=== PATIENT | female | born 1940 | race Caucasian/White ===

== ENCOUNTER 2016-10-05 07:40 | Day surgery (SDC) | payer MEDICARE, OTHER ==
[~2016-10-05 07:40] MED LIST: BUPIVACAINE HCL 0.75% INJ/PF (7.5 MG/1 ML) 10 ML SDV ONE; LIDOCAINE 2%/EPINEPHRINE INJ 20 ML VIAL ONE; POVIDONE-IODINE 5% OPH PREP SOLN 30 ML ONE; TETRACAINE HCL 0.5% OPH SOLN 2 ML ONE; THROMBIN (BOVINE) TOPICAL 5000 UNIT VIAL ONE
[2016-10-05] MEDS: NEO/POLYMYX B SULF/DEXAMETH OPH OINTMENT 3.5 GM ONE ×2 (09:43)
--- NOTE | 2016-10-16 17:49 | [facility] OPERATIVE REPORT E ---
[facility] Operative Report NAME: TOMMIE MACIAS AGE: 76Y DATE OF SURGERY: 10/05/2016 ROOM: PREOPERATIVE DIAGNOSIS: Bilateral upper eyelid dermatochalasis with visual field loss. POSTOPERATIVE DIAGNOSIS: Bilateral upper eyelid dermatochalasis with visual field loss. OPERATION: Bilateral upper eyelid blepharoplasty. SURGEON: SARAH HERNANDEZ M.D. ANESTHESIA: Local with MAC. PROCEDURE: The patient was brought to the operating room, and under monitored anesthesia care, Tetracaine drops were placed in the eye. Both eyes were sterilely prepped and draped in the usual manner. Attention was directed to the left upper lid where the upper lid crease was marked using a marking pen, and 0.3 mm forceps were used to estimate the excess upper lid to be excised. This was marked in an elliptical fashion. An identical procedure was performed on the right upper lid. Local anesthesia was administered, and this consisted of approximately 3 mL of 2% Xylocaine with epinephrine mixed with 0.75% Marcaine in a 1:1 ratio. This was administered in both upper lids and diffused with a Q-tip. Attention was directed to the left upper lid where the elliptical piece of skin was removed. Hemostasis was obtained with bipolar cautery. The orbital septum was opened, and retroseptal fat was grasped with a hemostat, cut, and cauterized. Thrombin was placed on the incision. Identical procedure was performed on the right upper lid. Wound closure was accomplished with 3 interrupted 6-0 silk sutures, taking a deep bite at the levator fascia approximating the lid skin. Closure was completed with a running 6-0 nylon suture through both upper lids. There was full closure and good hemostasis at the end of the surgery. Next, TobraDex ointment was placed on both upper lids. The patient tolerated the procedure well and was sent to recovery room in good condition. DICTATING PHYSICIAN: SARAH HERNANDEZ M.D. [id number] PHY#: [id number] ID: [id number] JOB#: [id number] ACCT: [id number] cc:SARAH HERNANDEZ M.D. >
--- NOTE | 2016-10-17 08:48 | DISCHARGE SUMMARY E ---
Discharge Summary NAME: TOMMIE MACIAS : 1940 AGE: 76Y ADMITTED: 10/05/2016 DISCHARGED: 10/05/2016 HOSPITAL COURSE: The patient is a 76-year-old who underwent uneventful bilateral upper eyelid blepharoplasty on 10/05/2016. She will be discharged to home. She is instructed to resume preoperative medications, to use a blepharoplasty ice pack 10 minutes out of every hour while awake, to keep the head of her bed elevated 45 degrees, to use Maxitrol ointment twice a day, and to follow up in my office in 1 week. DICTATING PHYSICIAN: SARAH HERNANDEZ M.D. [id number] PHY#: [id number] ID: [id number] JOB#: [id number] ACCT: [id number] cc:SARAH HERNANDEZ M.D. >
== END 2016-10-05 10:46 | disposition home or self-care (01) ==
LOC: SC 07:40
PROVIDERS: ATTEND Ophthalmology
PROC: 080N0ZZ Alteration of Right Upper Eyelid, Open Approach (ICD-10-PCS; 2016-10-05)
PROC: 080P0ZZ Alteration of Left Upper Eyelid, Open Approach (ICD-10-PCS; principal; 2016-10-05 08:45)
DX: H02.831 Dermatochalasis of right upper eyelid (principal); H02.834 Dermatochalasis of left upper eyelid; I10 Essential (primary) hypertension; E03.9 Hypothyroidism, unspecified; H53.40 Unspecified visual field defects; K21.9 Gastro-esophageal reflux disease without esophagitis; G51.0 Bell's palsy; H16.223 Keratoconjunctivitis sicca, not specified as Sjogren's, bilateral; Z79.1 Long term (current) use of non-steroidal anti-inflammatories (NSAID); Z79.82 Long term (current) use of aspirin; Z79.899 Other long term (current) drug therapy
CPT/HCPCS: 15823; J3490 ×5; 103

== ENCOUNTER → 2017-09-18 | Outpatient (CLI) | payer MEDICARE, OTHER | LOC: OD 08:56 | DX: M25.551 Pain in right hip (principal) | CPT/HCPCS: 36415; 85652; 86140 ==